=== PATIENT | female | born 1950 | race Caucasian/White ===

== ENCOUNTER 2021-03-23 19:07 | Emergency (ER) | payer SELFPAY ==
[~2021-03-23] VITALS: Ht 157.5 cm; Wt 54.4 kg
[2021-03-23 19:15] VITALS: BP 158/102
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
--- NOTE | 2021-03-23 19:48 | ER.PDOC ---
General Chief Complaint: Requesting Medical Care Stated Complaint: MEDICAL CLEARANCE TRAVEL OUT OF US: No Time seen by MD: 19:15 Source: patient Exam Limitations: no limitations History of Present Illness Initial Comments Patient is brought by law enforcement for agitation and aggressiveness for medical clearance. Timing/Duration: unsure Modifying Factors: worse with cold therapy, worse with eating, worse with immobilization, worse with medication, worse with movement, worse with rest, worse with other Past Medical History Medical History: cancer, hypertension, thyroid disease Surgical History: no surgical history Social History Alcohol Use: none Drug Use: none Review of Systems All Other Systems: Reviewed and Negative Physical Exam General Appearance: No Apparent Distress, WD/WN EENT: eyes nml inspection, nml ENT inspection, pharynx nml Neck: Non-Tender, Full Range of Motion, Supple, Normal Inspection Respiratory: chest non-tender, lungs clear, normal breath sounds, no respiratory distress CVS: reg rate & rhythm, no murmur, no gallop, pulses nml Gastrointestinal: Normal Bowel Sounds, No Organomegaly, No Pulsatile Mass, Non Tender Back: Normal Inspection, No CVA Tenderness, No Vertebral Tenderness, CVA Tenderness (R) Extremities: Normal Range of Motion, Non-Tender Neurologic/Psychiatric: key account director II-XII NML as Tested, No Motor/Sensory Deficits, Alert, Normal Mood/Affect Lymphatic: No Adenopathy Results/Orders Results/Orders Orders - ARIA CANTU MD Cbc With Auto Diff (03/23/21 19:33) Comprehensive Metabolic Panel (03/23/21 19:33) Urinalysis (03/23/21 19:33) Thyroid Stimulating Horm(Ml) (03/23/21 19:33) Drug Scrn Med W Confirmation (03/23/21 19:33) Vitamin D Total 25 Hydroxy (03/23/21 19:33) RPR (03/23/21 19:33) Hemoglobin A1c(Ml) (03/23/21 19:33) Lipid Panel(Ml) (03/23/21 19:33) Creatine Kinase (03/23/21 19:33) Creatine Kinase Mb (03/23/21 19:33) Probnp B-Type Screen Printing Press Operator (03/23/21 19:33) Ammonia (03/23/21 19:33) Alcohol(Ml) (03/23/21 19:33) Acetaminophen(Ml) (03/23/21 19:33) Salicylate(Ml) (03/23/21 19:33) Ekg-Routine (03/23/21 19:33) Xr Chest 1v (03/23/21 19:33) Troponin I High Sensitivity (03/23/21 19:33) Covid19 Antigen Diane Ev (03/23/21 19:33) Aspirin (Aspirin Ec) (03/23/21 20:53) Aspirin (Aspirin) (03/23/21 22:20) Urine Culture (03/23/21 22:14) Vital Signs Date Time Temp Pulse Resp B/P (MAP) Pulse Ox O2 Delivery O2 Flow Rate FiO2 03/23/21 23:15 98.6 92 18 126/82 (97) Room Air 03/23/21 22:15 98.6 94 18 126/82 (97) Room Air 03/23/21 21:15 98.6 97 18 149/87 (107) Room Air 03/23/21 20:15 98.6 92 18 149/87 (107) Room Air 03/23/21 19:15 98.6 108 18 03/23/21 19:15 98.6 108 18 158/102 (120) Room Air 03/23/21 19:15 98.6 108 18 Administered Medications Medications (Trade) Dose Ordered Sig/Yash Route PRN Reason Start Time Stop Time Status Last Admin Dose Admin Aspirin (Aspirin Ec) 162 mg STAT STAT PO 03/23/21 20:53 03/23/21 20:54 UNV 03/23/21 22:24 162 MG Laboratory Tests Test 03/23/21 19:47 03/23/21 20:06 03/23/21 22:14 White Blood Count 10.9 10^3/uL (4.5-11.0) Red Blood Count 5.17 10^6/uL (4.00-5.20) Hemoglobin 15.2 g/dL (12.0-15.0) H Hematocrit 45.1 % (36.0-46.0) Mean Corpuscular Volume 87.2 fL (78-100) Mean Corpuscular Hemoglobin 29.4 pg (26-34) Mean Corpuscular Hemoglobin Concent 33.7 g/dL (33-36.5) Red Cell Distribution Width 13.3 % (11.5-14.5) Platelet Count 327 10^3/uL (150-400) Mean Platelet Volume 8.3 fL (7.8-11.0) Neutrophils (%) (Auto) 87.3 % (41.0-85.0) H Lymphocytes (%) (Auto) 6.5 % (24.0-44.0) *L Monocytes (%) (Auto) 5.7 % (5.0-12.0) Neutrophils # (Auto) 9.6 10^3/uL (1.8-7.7) H Lymphocytes # (Auto) 0.71 10^3/uL1 (1.0-4.8) L Monocytes # (Auto) 0.6 10^3/uL (0.3-0.8) Absolute Immature Granulocyte (auto 0.01 10^3 u/L (0-2) Absolute Eosinophils (auto) 0.0 10^3/uL (0.0-0.2) Immature Granulocytes % 0.10 % (0.00-0.50) Eosinophils % 0.0 % (0.0-5.0) Basophils % 0.4 % (0.0-0.2) H Basophils # 0.0 10^3/uL (0.0-0.1) Sodium Level 138 mmol/L (132-145) Potassium Level 3.6 mmol/L (3.6-5.2) Chloride Level 100.0 mmol/L (96-109) Carbon Dioxide Level 20.4 mmol/L (20.0-32) Anion Gap 21.2 Blood Urea Nitrogen 32 mg/dL (7-18) H Creatinine 1.20 mg/dL (0.59-1.40) Estimated GFR () 53.9 (>/=60) Est GFR (CKD-EPI)(Non-Afr [place]) 44.5 (>/=60) BUN/Creatinine Ratio 26.0 Glucose Level 96 mg/dL (70-110) Hemoglobin A1c 5.2 % (0-5.7) Calcium Level 9.5 mg/dL (8.4-10.5) Total Bilirubin 1.1 mg/dL (0.2-1.0) H Aspartate Amino Transferase (AST) 22 U/L (0-35) Alanine Aminotransferase (ALT) 11 U/L (12-78) L Alkaline Phosphatase 130 U/L (50-136) Ammonia 15 umol/L (11-35) Total Creatine Kinase 148 U/L (26-192) Creatine Kinase MB 4.4 ng/mL (0.5-3.6) H Troponin I High Sensitivity 68 ng/L (0-50) *H Pro-B-Type Natriuretic Peptide 285 pg/mL (0-125) H Total Protein 8.3 g/dL (6.4-8.2) H Albumin 4.6 g/dL (3.4-5.0) Globulin 3.7 Albumin/Globulin Ratio 1.243 Triglycerides Level 118 mg/dL (20-200) Cholesterol Level 268 mg/dL (120-240) H LDL Cholesterol, Calculated 164.4 VLDL Cholesterol, Calculated 23.6 HDL Cholesterol 80 mg/dL (32-96) Cholesterol Ratio (LDL/HDL) 2.0 Cholesterol/HDL Ratio [id number] Vitamin D 25-Hydroxy 26.6 ng/mL (30.0-100.0) L Thyroid Stimulating Hormone (TSH) 1.446 mIU/mL (0.358-3.740) Salicylates Level < 2.8 mg/dL (2.8-20.0) L Acetaminophen Level < 2 ug/mL (10-30) L Serum Alcohol < 3 mg/dL (0-50) SARS-CoV-2 Antigen (Rapid) NEGATIVE (NEGATIVE) Differential Total Cells Counted 100 #CELLS Segmented Neutrophils 87 % (31-76) H Lymphocytes 8 % (25-36) L Monocytes 5 % (3-9) Differential Comment NORMAL Platelet Estimate ADEQUATE Platelet Morphology NORMAL Blood Morphology Comment NORMAL MORPHOLOGY Urine Collection Type CCMS Urine Color YELLOW Urine Appearance CLOUDY Urine Bilirubin 2+ (NEGATIVE) H Urine Ketones 4+ (NEGATIVE) H Urine Specific [place] >=1.030 (1.005-1.030) Urine pH 5.5 (4.5-8.0) Urine Protein 2+ (NEGATIVE) H Urine Urobilinogen 0.2 E.U./dL (0.2) Urine Nitrate NEGATIVE (NEGATIVE) Urine Leukocyte Esterase 1+ (NEGATIVE) H Urine Glucose (Auto)(UA) NEGATIVE (NEGATIVE) Urine Blood TRACE-INTACT (NEGATIVE) H Urine RBC 2-5 RBC/HPF (NONE SEEN) Urine WBC 10-25 WBC/HPF (0-2) H Urine Squamous Epithelial Cells FEW (<=FEW) Urine Bacteria MODERATE (NONE SEEN) H Urine Hyaline Casts FEW (NONE SEEN) A Urine Fine Granular Casts MODERATE (NONE SEEN) A Urine Opiates Screen NEGATIVE (c/o300ng/mL) Urine Methadone Screen NEGATIVE (c/o300ng/mL) Urine Barbiturates Screen NEGATIVE (c/o200ng/mL) Urine Phencyclidine Screen NEGATIVE (c/o 25ng/mL) Ur Amphetamine/Methamphetamine PRESUMPTIVE POSITIVE Urine MDMA Screen (Ecstasy) PRESUMPTIVE POSITIVE Urine Benzodiazepines Screen NEGATIVE (c/o200ng/mL) Urine Cocaine Metabolite Screen NEGATIVE (c/o300ng/mL) Ur Tetrahydrocannabinol (THC) Scrn NEGATIVE (c/o 50ng/mL) Progress Progress Since patient has been here she has the extubated hallucinations believe that there are people in the room with her. EKG/XRAY/CT/US EKG: NSR, rhythm (sinus), no ST T wave changes, nonspecific ST T wave chg ER DEPART Departure Time of Disposition: 12:35 [facility] Impression: Primary Impression: Elevated troponin Additional Impressions: Agitation Visual hallucination Manic behavior Condition: Stable Referrals: BENNY DEMPSEY MD (PCP) PRIMARY CARE PROVIDER Duration or Time Spent with Pa: 15 Problem Qualifiers ARIA CANTU MD Mar 23, 2021 19:48
--- NOTE | 2021-03-23 19:49 | NUR ---
Critical lab: troponin [address] Michelle
[2021-03-23 19:57] LABS: BASOPHIL % 0.4 % (0.0-0.2); LYMPHOCYTES # 0.71 10^3/uL1 (1.0-4.8); LYMPHOCYTES % 6.5 % (24.0-44.0); MEAN CORP HGB 29.4 pg (26-34); MONOCYTES # 0.6 10^3/uL (0.3-0.8); MONOCYTES % 5.7 % (5.0-12.0); NEUTROPHIL # 9.6 10^3/uL (1.8-7.7); NEUTROPHILS % 87.3 % (41.0-85.0); PLATELET COUNT 327 10^3/uL (150-400); RED CELL DISTRIBUTION WIDTH 13.3 % (11.5-14.5)
--- NOTE | 2021-03-23 20:00 | DIREP ---
PROCEDURE:CHEST 1 VIEW COMPARISON:None. INDICATIONS:medical Clearance FINDINGS: LUNGS/PLEURA:No significant pulmonary parenchymal abnormalities. No effusions. VASCULATURE:Normal. Unremarkable pulmonary vasculature. CARDIAC:Normal. No cardiac silhouette abnormality or cardiomegaly. MEDIASTINUM:Normal. No visible mass or adenopathy. BONES:Normal. No fracture or visible bony lesion. OTHER:Surgical clips are seen in both axillary regions and upper mediastinum. CONCLUSION:No acute cardiopulmonary abnormality is seen. Dictated by: Miguel Ang M.D. on 03/23/2021 at 07:58 PM
[2021-03-23 20:15] VITALS: BP 149/87
[2021-03-23 20:37] LABS: CARBON DIOXIDE 20.4 mmol/L (20.0-32); GLUCOSE 96 mg/dL (70-110)
[2021-03-23 20:49] LABS: DIFFERENTIAL COMMENT NORMAL; LYMPHOCYTE 8 % (25-36); MONOCYTE 5 % (3-9); SEGMENTED NEUTROPHILS 87 % (31-76)
[2021-03-23] MEDS ORDERED: ASPIRIN EC PO STA (20:53)
[2021-03-23 21:15] VITALS: BP 149/87
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
--- NOTE | 2021-03-23 21:26 | PCM.EKG ---
[facility] Test Date: 2021-03-23 Test Time: 21:21:45 Pat Name: DORIS VANEGAS Department: Patient ID: [id number] Room: Gender: F Director Mortgage: VALERIE : 1950 Requested By: ARIA CANTU Order Number: [id number] Reading MD: Darline Sánchez Measurements Intervals [place] Rate: 106 P: 79 MO: 99 QRS: 76 QRSD: 89 T: 40 QT: 364 QTc: 484 Interpretive Statements Sinus tachycardia Atrial premature complex Right atrial enlargement Left ventricular hypertrophy Baseline wander in lead(s) V2 No previous ECG available for comparison Electronically Signed On 03-29-2021 17:16:33 INSURANCE SALES AGENT by Darline Sánchez Please click the below link to view image of tracing.
[2021-03-23 22:15] VITALS: BP 126/82
[2021-03-23] MEDS ORDERED: ASPIRIN ONE (22:20)
[2021-03-23 22:25] LABS: BILIRUBIN,URINE 2+ (NEGATIVE); UROBILINOGEN,URINE 0.2 E.U./dL (0.2)
[2021-03-23 23:15] VITALS: BP 126/82
[2021-03-24 00:10] VITALS: BP 124/82
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
[2021-03-24 01:05] VITALS: BP 122/82
[2021-03-24 02:15] VITALS: BP 128/78
--- NOTE | 2021-03-24 13:34 | NUR ---
Evette armijo in [facility] - 03/24/21 at 1337 by BETHANY MALIK JUSTIN ACCEPTED PATIENT AND OSIEL BOWEN
== END 2021-03-24 03:45 ==
LOC: ER 19:07
DX: R44.1 Visual hallucinations (principal); R77.8 Other specified abnormalities of plasma proteins; R45.1 Restlessness and agitation; F30.9 Manic episode, unspecified; I10 Essential (primary) hypertension; Z20.822 Contact with and (suspected) exposure to COVID-19; Z79.82 Long term (current) use of aspirin
CPT/HCPCS: 36415; 71045; 80053; 80061; 80299; 80307; 81001; 82077; 82140; 82306; 82550; 82553; 83036; 83880; 84443; 84484; 85025; 86592; 87086; 87426; 93005; 99285

== ENCOUNTER 2021-08-08 16:26 | Emergency (ER) | payer MEDICARE, SELFPAY ==
[~2021-08-08] VITALS: Ht 157.5 cm; Wt 72.6 kg
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
[2021-08-08 16:30] VITALS: BP 125/98
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
[2021-08-08 17:02] LABS: BASOPHIL % 0.4 % (0.0-0.2); EOSINOPHIL # 0.1 10^3/uL (0.0-0.2); EOSINOPHIL % 1.2 % (0.0-5.0); LYMPHOCYTES # 0.96 10^3/uL1 (1.0-4.8); LYMPHOCYTES % 18.9 % (24.0-44.0); MEAN CORP HGB 28.6 pg (26-34); MONOCYTES # 0.2 10^3/uL (0.3-0.8); MONOCYTES % 4.5 % (5.0-12.0); NEUTROPHIL # 3.8 10^3/uL (1.8-7.7); NEUTROPHILS % 74.8 % (41.0-85.0); PLATELET COUNT 305 10^3/uL (150-400); RED CELL DISTRIBUTION WIDTH 13.8 % (11.5-14.5)
[2021-08-08 17:26] LABS: CARBON DIOXIDE 24.8 mmol/L (20.0-32)
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
[2021-08-08 17:41] LABS: BILIRUBIN,URINE NEGATIVE (NEGATIVE); UROBILINOGEN,URINE 0.2 E.U./dL (0.2)
[2021-08-08] MEDS ORDERED: NS 1000ML 1,000 ML IV STA (17:46)
[2021-08-08] MEDS ORDERED: TORADOL IV STA (18:24)
[2021-08-08] MEDS ORDERED: XYLOCAINE 1%-EPI 1:100,000 ONE (18:32)
[2021-08-08] MEDS ORDERED: TORADOL ONE (18:36)
[2021-08-08] MEDS ORDERED: TRIPLE ANTIBIOTIC OINTMENT TP ONE (19:36)
[2021-08-08 19:41] VITALS: BP 154/82
== END 2021-08-08 19:43 | disposition home or self-care (01) ==
LOC: EDBD 16:26 → ER 16:26
DX: S01.111A Laceration without foreign body of right eyelid and periocular area, initial encounter (principal); S83.91XA Sprain of unspecified site of right knee, initial encounter; S09.90XA Unspecified injury of head, initial encounter; E07.9 Disorder of thyroid, unspecified; F10.129 Alcohol abuse with intoxication, unspecified; I10 Essential (primary) hypertension; R11.2 Nausea with vomiting, unspecified; Y04.8XXA Assault by other bodily force, initial encounter; Y93.89 Activity, other specified; Y92.009 Unspecified place in unspecified non-institutional (private) residence as the place of occurrence of the external cause; Y99.8 Other external cause status; Z88.0 Allergy status to penicillin
CPT/HCPCS: 12013; 36415; 71045; 73562; 80053; 80307; 81001; 82077; 82550; 82553; 85025; 96361; 96374; 99284; J1885